=== PATIENT | female | born 1945 | race American Indian/Alaskan Native ===

== ENCOUNTER 2018-04-13 07:28 | Day surgery (SDC) | payer MEDICARE, OTHER ==
[~2018-04-13] VITALS: Ht 157.5 cm; Wt 61.2 kg
[2018-04-13] MEDS ORDERED: NORCO 5-325 TA1 EACH PO (09:14)
--- NOTE | 2018-04-13 09:54 | NUR ---
[facility]18 [facility]IV[facility] PACU ASLEEP WITH ORAL AIRWAY IN PLACE. NO RESPONSE TO TACTILE STIMULI.
--- NOTE | 2018-04-13 10:36 | OR ---
[facility] [address], [place] [address] Signed DATE OF OPERATION: 04/13/2018 SURGEON: Dutch Allan MD PREOPERATIVE DIAGNOSES: 1. Recent rectal bleeding. 2. Mother with colon cancer, age 65. 3. Personal history of colonic polyps. 4. Diverticulosis. POSTOPERATIVE DIAGNOSES: 1. Moderate sigmoid diverticulosis. 2. Moderate internal hemorrhoids. PROCEDURE: Colonoscopy without biopsy. ESTIMATED BLOOD LOSS: None. INDICATIONS: Rachel is a 72-year-old female, who I have known for sometime. Before she has had a stroke and that left her with some left hemiplegia and some dysarthria. Also, she has some anxiety. We know that her mother had colon cancer at age 65 and Rachel has had colonic polyps removed. Her last colonoscopy was in 2012. She also has left-sided diverticulosis. She had seen blood with her stool and of course that was concerning to her knowing her history, so she was asked to see me with respect to the above. She does have various medical issues including atrial fibrillation. We had her medically cleared by her primary care provider at the request of her anesthesia provider. She returns today for her colonoscopy. In the meantime, she thinks the rectal bleeding has gotten better if not improved completely. I have met with Rachel and her caregivers. She is very familiar with colonoscopy. She understands the nature of that test along with its risks including, but not limited to gas bloating, crampy abdominal pain, bleeding, perforation, requiring surgery, and missed diagnosis. She also understands the need for the IV conscious sedation. Given her medical history, we asked that an anesthesia provider help us with increased monitoring and sedation with propofol. She had expressed understanding and wished to proceed. PROCEDURE NOTE: Rachel was taken into our endoscopy suite and placed in the left lateral decubitus Electronically Signed By: DUTCH ALLAN MD 04/13/18 1036 PATIENT NAME: RACHEL GEORGE OPERATIVE REPORT DATE OF : 49 REPORT #: [id number] PHYSICIAN: DUTCH ALLAN MD PCP: bK Hudson DO REPORT IS CONFIDENTIAL AND NOT TO BE RELEASED WITHOUT AUTHORIZATION [facility] [address], [place] [address] Signed position. She was given IV sedation with propofol per nurse furnace door tender. A digital rectal exam was performed and this was unremarkable. The adult colonoscope was then introduced and advanced all around into the cecum under direct visualization of camera without difficulty. Her prep was good. The scope was then slowly withdrawn. She does have moderate sigmoid diverticula. They were moderate in size, moderate in number, and scattered about. The rectum was unremarkable. Upon retroflexion of the scope, she does have moderate internal hemorrhoid columns. I suspect this is the source of her rectal bleeding from time to time. After this, the gas was suctioned out and the colonoscope removed. Rachel tolerated the procedure quite well. RECOMMENDATIONS: Rachel can follow up in my office as needed. If her health is excellent, she wants to return for colonoscopy in 5 years if certainly fine. Otherwise, she will follow up as needed. Dutch Allan MD ALB/MODL /[id number] cc: MD Kb Varela DO Copies: DUTCH ALLAN MD, Jonas H DO ~ Electronically Signed By: DUTCH ALLAN MD 04/13/18 1036 PATIENT NAME: RACHEL GEORGE OPERATIVE REPORT DATE OF : 49 REPORT #: [id number] PHYSICIAN: DUTCH ALLAN MD PCP: Kb Hudson DO REPORT IS CONFIDENTIAL AND NOT TO BE RELEASED WITHOUT AUTHORIZATION
== END 2018-04-13 10:25 | disposition home or self-care (01) ==
LOC: OPS 07:28 → DS 07:28 → OPS 09:30 → DS 09:30 → OPS 10:25
PROVIDERS: Colon & Rectal Surgery
PROC: 0DJD8ZZ Inspection of Lower Intestinal Tract, Via Natural or Artificial Opening Endoscopic (ICD-10-PCS; principal; 2018-04-13 09:30)
DX: K64.8 Other hemorrhoids (principal); K57.30 Diverticulosis of large intestine without perforation or abscess without bleeding; I48.91 Unspecified atrial fibrillation; I25.10 Atherosclerotic heart disease of native coronary artery without angina pectoris; I25.2 Old myocardial infarction; I10 Essential (primary) hypertension; E66.9 Obesity, unspecified; Z80.0 Family history of malignant neoplasm of digestive organs; Z83.71 Family history of colonic polyps; Z86.010 Personal history of colon polyps; Z98.890 Other specified postprocedural states; Z88.6 Allergy status to analgesic agent; Z91.041 Radiographic dye allergy status; Z79.01 Long term (current) use of anticoagulants; Z79.899 Other long term (current) drug therapy; Z68.24 Body mass index [BMI] 24.0-24.9, adult; Z86.73 Personal history of transient ischemic attack (TIA), and cerebral infarction without residual deficits
CPT/HCPCS: 80048; 85025; J2704; J7120